=== PATIENT | female | born 1970 ===

== ENCOUNTER 2024-12-02 13:01 | Outpatient (AMB) | payer MEDICAID, SELFPAY ==
--- OUTSIDE RECORDS SUMMARY | 2024-12-01 07:44 | XMS_ITS ---
Author Organization [facility] Address [address] [place] [phone] Care Team Providers Care Wireless Team Member Name Role Phone BerryameliaGrady Primary Care Provider [phone] REASON FOR VISIT [facility] 11/18/24 Social History Sex Assigned At : Social History Observation Description Sex Assigned At Female Encounters Encounter Location Date Provider Diagnosis [address] [phone] 12/01/2024 Grady De Leon Plan Of Treatment Next Appt Details Provider Name:Gradyeduardo De Leon, 12/29/2024 03:20:00 PM, [address] [place] [address], [phone], Progress Notes * Christy CONNELLY MDOB:1970 ( 54 yo F)Acc No.[id number]:12/01/2024 Patient: Christy FELIX :1970 A ge:54 Y S ex:Female Address:[address] [place] [address], [place], [address] * * Date:
--- NOTE | 2024-12-02 13:04 | AM.OFFWIN_ITS ---
Intake Vital Signs 12/02/24 13:08 Height 5 ft 4 in Weight 166 lb BMI 28.5 BP 144/80 H Blood Pressure Location Rt brachial Position Sitting Pulse 92 Pulse Source Pulse Oximeter Pulse Oximetry (%) 97 Oxygen Delivery Method Room Air Intake Visit Reasons: [employer] feels like shes having a heart attack sob Intake Note: presents with chest pain and left hand numbness for a couple weeks s/p prolapse uterine and bladder diagnosis - consult with surgeon in 8 days Allergies codeine Allergy (Intermediate, Verified 12/02/24 13:10) Rash tramadol Allergy (Intermediate, Verified 12/02/24 13:10) Rash Do you need a note to return to daycare/school/sports/work: No HPI HPI Comments History of Present Illness Details History of Present Illness - The patient is a 54-year-old female pr esenting with chest pain and numbness in the left arm and hand. - The chest pain has persisted for three weeks, with the patient delaying medical consultation due to procrastination. - The patient reports sharp 10/10 left s ided chest pain with numbness to the arm. - She has a history of heart attacks, th e last occurring a few years ago, without stent placement. - Reports of significant shortness of br eath and nausea have been noted throughout the day. - Right leg swelling is frequent, though the etiology is unclear. - The patient is not on any pain medicat ion or daily aspirin and is a smoker. - She denies any other drug use. - She has undergone 38 surgeries at [facility] and is dissatisfied with the care provided. - No recent changes in medication or t, although she reports eating indiscriminately. - She did not call her PCP today for her chest pain. - She denies vomiting, HERNANDEZ, cold symptoms , reflux, fever, or chills. Physical Exam General: Cooperative, healthy appearing, comfortable, no acute distress and well developed Orientation: Patient oriented x3 Limitations: No limitations Head: Normal to inspection Eyes: Appearance normal Respiratory: Heavy breathing noted. No use of accessory muscles. No w/r/r noted. Cardiovascular: Regular rate and rhythm. Normal S1 and S2. No m/r/g noted. GI: Non-distended, unable to palpate as pt would not allow an exam Skin: No rashes or lesions noted Neuro: Patient oriented x3 Extremities: No edema noted. Patient was informed and verbally consented to the use of an ambient scribe for clinic note documentation during this visit. Review of Systems Const All systems reviewed & are unremarkable except as noted in HPI and below Results Reviewed Results Reviewed: EKG in the office 82 bpm, No ST elevations noted. No olds in the system Assessment & Plan Assessment & Plan (1) Chest pain: Code(s): R07.9 - Chest pain, unspecified Qualifiers: Chest pain type: unspecified Qualified Code(s): R07.9 - Chest pain, unspecified Plan Most likely cardiac vs anxiety vs GERD vs PE? EKG in the office today Plan - Perform an EKG to evaluate cardiac stability. - Advise the patient to visit the emergency room for further assessment and management of chest pain. - Advise the patient that an ambulance would be called for her to go to the ER and patient refused. - Was going to have a friend take her to the ER by car and it was unclear as to which ER she was going to and when - An AMA was signed due to her refusing the ambulance today - Pt is aware that the ambulance was the safest way to transport the patient due to her condition - Unable to call an expect into the ER at the time of the visit as it was unknown where she was going Orders: Orders AMB EKG-In Office Today R07.9 - Chest pain, unspecified Coding Level of Care Code New Pt Level 3 (01223) Diagnoses Chest pain, unspecified type R07.9 Chest pain type: unspecified
[2024-12-02 13:08] VITALS: BP 144/80; PULSE 92; O2SAT 97; BMI 28.5
== END 2024-12-02 13:58 | disposition home or self-care (01) ==
PROVIDERS: Visit Provider Physician Assistant Medical
DX: R07.9 Chest pain, unspecified (principal)

== ENCOUNTER → 2024-12-02 13:01 | Outpatient (BNVA) | payer MEDICAID, SELFPAY | PROVIDERS: Visit Provider Physician Assistant Medical | DX: R07.9 Chest pain, unspecified (principal); R20.0 Anesthesia of skin; R53.83 Other fatigue; R06.02 Shortness of breath | CPT/HCPCS: 93005; 99202 ==